=== PATIENT | male | born 1960 | race Caucasian/White ===

== ENCOUNTER 2017-01-20 08:00 | Outpatient (CLI) | payer MEDICAID | END 2017-01-20 08:01 | DX: I10 Essential (primary) hypertension (principal) ==

== ENCOUNTER 2017-01-25 09:44 | Outpatient (CLI) | payer MEDICAID | END 2017-01-25 09:45 | disposition critical access hospital (66) | DX: R07.9 Chest pain, unspecified (principal); R68.84 Jaw pain | CPT/HCPCS: A0425; A0427 ==

== ENCOUNTER 2017-01-25 10:04 | Emergency (ER) | payer MEDICAID ==
[2017-01-25] MEDS ORDERED: DEXAMETHASONE 10 MG/ML VIAL IVP STA (11:22)
[2017-01-25] MEDS ORDERED: IPRATROPIUM/ALBUTEROL 3 ML NEB INH STA (11:22)
[2017-01-25] MEDS ORDERED: SODIUM CHLORIDE 0.9% 1,000 ML IV ONE (11:31)
[2017-01-25] MEDS ORDERED: DEXAMETHASONE 10 MG/ML VIAL ONE (11:40)
[2017-01-25] MEDS ORDERED: IPRATROPIUM/ALBUTEROL 3 ML NEB INH ONE (11:40)
== END 2017-01-25 12:37 | disposition home or self-care (01) ==
DX: R07.89 Other chest pain (principal); R06.00 Dyspnea, unspecified; R05 Cough; E86.0 Dehydration; H66.003 Acute suppurative otitis media without spontaneous rupture of ear drum, bilateral; G40.909 Epilepsy, unspecified, not intractable, without status epilepticus; Z87.891 Personal history of nicotine dependence
CPT/HCPCS: 36415; 71020; 80053; 83690; 84484; 85025; 93005; 93010; 94640; 96361; 96374; 99283; 99285; J7620

== ENCOUNTER 2017-05-12 09:58 | Emergency (ER) | payer MEDICAID ==
[2017-05-12] MEDS ORDERED: SODIUM CHLORIDE 0.9% 1,000 ML IV ONE (10:24)
[2017-05-12] MEDS ORDERED: ACETAMINOPHEN 1,000 MG/100 ML 100 ML IV STA (10:24)
[2017-05-12] MEDS ORDERED: ACETAMINOPHEN 1,000 MG/100 ML 100 ML IV ONE (10:37)
[2017-05-12 10:43] LABS: BASOPHILS # (AUTO) 0.1 10^3/uL (0.0-0.1); BASOPHILS % (AUTO) 1.2 %; EOSINOPHILS # (AUTO) 0.1 10^3/uL (0.0-0.7); EOSINOPHILS % (AUTO) 1.5 %; HCT - HEMATOCRIT 45.1 % (42.0-52.0); HGB - HEMOGLOBIN 15.5 g/dL (14.0-18.0); LYMPHOCYTES # (AUTO) 2.2 10^3/uL (1.5-3.5); LYMPHOCYTES % (AUTO) 32.4 %; MEAN CORPUSCULAR HEMOGLOBIN 30.2 pg (27.0-31.0); MEAN CORPUSCULAR HGB CONC 34.3 g/dL (32.0-36.0); MEAN PLATELET VOLUME 6.6 fL (7.4-11.4); MONOCYTES # (AUTO) 0.6 10^3/uL (0.0-1.0); MONOCYTES % (AUTO) 9.4 %; NEUTROPHILS # (AUTO) 3.8 10^3/uL (1.5-6.6); NEUTROPHILS % (AUTO) 55.5 %; RED BLOOD COUNT 5.12 10^6/uL (4.70-6.10); RED CELL DISTRIBUTION WIDTH 13.4 % (12.0-15.0); UNCORRECTED WHITE BLOOD COUNT 6.8 x10^3/uL; WHITE BLOOD COUNT 6.8 x10^3/uL (4.8-10.8)
[2017-05-12 10:56] LABS: ALBUMIN/GLOBULIN RATIO 1.5 (1.0-2.2); BILIRUBIN,TOTAL 0.9 mg/dL (0.2-1.0); CALCIUM 8.8 mg/dL (8.5-10.3); CREATININE 0.9 mg/dL (0.6-1.2); POTASSIUM 4.1 mmol/L (3.5-5.0); TOTAL PROTEIN 7.6 g/dL (6.7-8.2)
[2017-05-12 11:38] LABS: BILIRUBIN,URINE NEGATIVE (NEGATIVE); PH,URINE 6.5 PH (5.0-7.5)
[2017-05-12 11:41] LABS: UA CHARGE (STRIP ONLY) YES; UR CULTURE IF IND NOT INDICATED
[2017-05-12] MEDS ORDERED: HYDROmorphone 1 MG/ML SYRINGE IVP STA (11:45)
[2017-05-12] MEDS ORDERED: ONDANSETRON 4 MG/2 ML VIAL IVP STA (11:45)
[2017-05-12] MEDS ORDERED: HYDROmorphone 1 MG/ML SYRINGE ONE (11:48)
[2017-05-12] MEDS ORDERED: ONDANSETRON 4 MG/2 ML VIAL ONE (11:48)
--- NOTE | 2017-05-12 12:48 | CT Report ---
EXAM: CT HEAD EXAM DATE: 05/12/2017 12:09 PM. CLINICAL HISTORY: Headache after seizure and probable fall. COMPARISON: 11/25/2007. TECHNIQUE: Multiaxial CT images were obtained from the foramen magnum to the vertex. IV contrast: Non e. Reformats: Coronal. In accordance with CT protocol optimization, one or more of the following dose reduction techniques w ere utilized for this exam: automated exposure control, adjustment of mA and/or KV based on patient s ize, or use of iterative reconstructive technique. FINDINGS: Prominent bilateral ethmoid sinus mucosal thickening. Less opacified frontal sinus. Clear mastoids. N o displaced skull fracture. Unremarkable CT appearance of the brain. No intracranial hemorrhage. No hydrocephalus or evidence for acute infarct. No mass effect, midline shift or abnormal subdural fluid collection. IMPRESSION: No CT evidence for acute intracranial abnormality. Persistent but improved paranasal sinus mucosal thickening. [facility] Referring Provider Line: [phone] SITE ID: [id number]
--- NOTE | 2017-05-12 12:52 | CT Report ---
EXAM: CT CERVICAL SPINE WITHOUT CONTRAST DATE: 05/12/2017 12:19 PM HISTORY: Neck pain after seizure, probable fall. COMPARISONS: None. TECHNIQUE: Thin-section axial images were acquired of the cervical spine without contrast. Post-proce ssing: Coronal and sagittal reformats. Other: None. In accordance with CT protocol optimization, one or more of the following dose reduction techniques w ere utilized for this exam: automated exposure control, adjustment of mA and/or KV based on patient s ize, or use of iterative reconstructive technique. FINDINGS: No acute fracture or dislocation. Minimal degenerative C5 on C6 retrolisthesis. No significant bony cervical stenosis. Minimal to mild multilevel chronic appearing degenerative disk space narrowing. Unremarkable facets. No focal prevertebral soft tissue swelling. At least mild if not moderate bilateral chronic appearing TMJ DJD without dislocation. IMPRESSION: Mild cervical spine degenerative changes. No significant bony stenosis. No acute fracture or dislocation. [facility] Referring Provider Line: [phone] SITE ID: [id number]
--- NOTE | 2017-05-12 15:35 | ED Physician Documentation ---
History of Present Illness - Stated complaint Stated Complaint: HEAD PX/SZ - Chief complaint Chief Complaint: General - History obtained from History obtained from: Patient, Family (Mother) - Additonal information Additional information: The patient is a 56-year-old male who lives with his mother and presents complaining of headache and general body aches. His headache is similar to previous headaches which he has had for months, but he states that they're coming more frequently now. He has a history of seizures, and thinks he may have had a seizure last night. In addition to headache he also complains of neck pain, which he states occurs sometimes after having a seizure. He has not been on seizure medication for several years, but states he was prescribed Abilify earlier this week, but he has not started taking the medication. He denies fever, abdominal pain, nausea or vomiting. His mother had called the emergency department advising she is concerned about his mental status, and asking if he can get a psychiatric evaluation. He admits to hearing voices recently. The voices are from various sources, and he denies that they are command voices, but he has not been able to shut off. He denies suicidal or homicidal ideation. Review of Systems Constitutional: reports: Myalgias. denies: Fever Eyes: denies: Decreased vision Ears: denies: Tinnitus/ringing Nose: denies: Congestion Throat: denies: Sore throat Cardiac: denies: Chest pain / pressure Respiratory: denies: Dyspnea, Cough GI: denies: Abdominal Pain, Nausea, Vomiting : denies: Dysuria Skin: denies: Rash Musculoskeletal: reports: Neck pain. denies: Back pain, Extremity pain Neurologic: reports: Headache. denies: Focal weakness, Numbness Psychiatric: reports: Hallucinations. denies: Suicidal, Homicidal PD PAST MEDICAL HISTORY - Past Medical History Cardiovascular: None Respiratory: Pneumonia Neuro: Seizure disorder Endocrine/Autoimmune: HyPERthyroidism Psych: Depression - Past Surgical History Past Surgical History: Yes General: Appendectomy - Present Medications Home Medications: Ambulatory Orders Medication Instructions Recorded Confirmed Aripiprazole [Abilify] 15 mg PO DAILY 05/12/17 05/12/17 - Allergies Allergies/Adverse Reactions: Allergies Allergy/AdvReac Type Severity Reaction Status Date / Time NSAIDS (Non-Steroidal Allergy Severe Respiratory Verified 05/12/17 10:05 Anti-Inflamma - Living Situation Living Situation: reports: With family Living Arrangement: reports: At home - Social History Does the pt smoke?: Yes Smoking Status: Current every day smoker Does the pt drink ETOH?: No Does the pt have substance abuse?: Yes Substance Use and Type: Marijuana - Immunizations Immunizations are current?: Yes - POLST Patient has POLST: No PD ED PE NORMAL - Vitals Vital signs reviewed: Yes (hypertensive) - General General: Alert and oriented X 3, Well developed/nourished, Other (Appears distressed, holding his hands to his head and grimacing.) - HEENT HEENT: Atraumatic, PERRL, EOMI, Ears normal, Pharynx benign, Other (Fundi with sharp disc margins, without papilledema.) - Neck Neck: Supple, no meningeal sign, No bony TTP, No adenopathy, No JVD, Other ( Tenderness to palpation in the paracervical musculature bilaterally. No tenderness to palpation along the spinous processes.) - Cardiac Cardiac: RRR, No murmur - Respiratory Respiratory: No respiratory distress, Clear bilaterally - Abdomen Abdomen: Soft, Non tender - Back Back: No CVA TTP, No spinal TTP - Derm Derm: No rash - Extremities Extremities: No tenderness to palpate, No edema, No calf tenderness / cord - Neuro Neuro: Alert and oriented X 3, No motor deficit, No sensory deficit PD ED PE EXPANDED - Psych Psych: Withdrawn, Auditory hallucinations. No: Suicidal, Homicidal, Visual hallucinations Results - Vitals Vitals: Vital Signs - 24 hr 05/12/17 05/12/17 12:26 15:51 Heart Rate 70 82 Respiratory 20 18 Rate Blood Pressure 174/91 H 159/85 H O2 Saturation 98 98 Oxygen O2 Source Room air - Labs Labs: Laboratory Tests 05/12/17 05/12/17 05/12/17 10:36 10:36 11:00 WBC 6.8 RBC 5.12 Hgb 15.5 Hct 45.1 MCV 88.0 MCH 30.2 MCHC 34.3 RDW 13.4 Plt Count 333 MPV 6.6 L Neut # 3.8 Lymph # 2.2 [place] # 0.6 Eos # 0.1 Baso # 0.1 Absolute Nucleated RBC 0.00 Nucleated RBCs 0.0 Sodium 135 Potassium 4.1 Chloride 103 Carbon Dioxide 24 Anion Gap 8.0 BUN 17 Creatinine 0.9 Estimated GFR (MDRD) 88 L Glucose 90 Calcium 8.8 Total Bilirubin 0.9 AST 19 ALT 16 Alkaline Phosphatase 45 Total Protein 7.6 Albumin 4.6 Globulin 3.0 Albumin/Globulin Ratio 1.5 Lipase 19 L Urine Color YELLOW Urine Clarity CLEAR Urine pH 6.5 Ur Specific [place] 1.010 Urine Protein NEGATIVE Urine Glucose (UA) NEGATIVE Urine Ketones TRACE Urine Occult Blood NEGATIVE Urine Nitrite NEGATIVE Urine Bilirubin NEGATIVE Urine Urobilinogen 0.2 (NORMAL) Ur Leukocyte Esterase NEGATIVE Ur Microscopic Review NOT INDICATED Urine Culture Comments NOT INDICATED Urine Opiates Screen Ur Oxycodone Screen Urine Methadone Screen Ur Propoxyphene Screen Ur Barbiturates Screen Ur Tricyclics Screen Ur Phencyclidine Scrn Ur Amphetamine Screen U Methamphetamines Scrn U Benzodiazepines Scrn Urine Cocaine Screen U Cannabinoids Screen 05/12/17 11:25 WBC RBC Hgb Hct MCV MCH MCHC RDW Plt Count MPV Neut # Lymph # [place] # Eos # Baso # Absolute Nucleated RBC Nucleated RBCs Sodium Potassium Chloride Carbon Dioxide Anion Gap BUN Creatinine Estimated GFR (MDRD) Glucose Calcium Total Bilirubin AST ALT Alkaline Phosphatase Total Protein Albumin Globulin Albumin/Globulin Ratio Lipase Urine Color Urine Clarity Urine pH Ur Specific [place] Urine Protein Urine Glucose (UA) Urine Ketones Urine Occult Blood Urine Nitrite Urine Bilirubin Urine Urobilinogen Ur Leukocyte Esterase Ur Microscopic Review Urine Culture Comments Urine Opiates Screen NEGATIVE Ur Oxycodone Screen NEGATIVE Urine Methadone Screen NEGATIVE Ur Propoxyphene Screen NEGATIVE Ur Barbiturates Screen NEGATIVE Ur Tricyclics Screen NEGATIVE Ur Phencyclidine Scrn NEGATIVE Ur Amphetamine Screen POSITIVE H U Methamphetamines Scrn POSITIVE H U Benzodiazepines Scrn NEGATIVE Urine Cocaine Screen NEGATIVE U Cannabinoids Screen NEGATIVE - Rads (name of study) Head CT Radiology: Prelim report reviewed, EMP read contemporaneously, See rad report ( No acute intracranial abnormality. Persistent, but improved, paranasal sinus mucosal thickening.) Cervical spine CT Radiology: Prelim report reviewed, EMP read contemporaneously, See rad report ( Mild cervical spine degenerative changes. No bony fracture or dislocation.) PD MEDICAL DECISION MAKING - ED course Complexity details: reviewed old records, reviewed results, re-evaluated patient , considered differential, d/w patient, d/w applications consultant ED course: The patient's presentation is significant for headache and auditory hallucinations. It is unclear whether or not he had a seizure, since there were no witnesses, and the patient only conjectures that he may have had one. Head CT and CT of the cervical spine are both negative, except for persistent paranasal sinus mucosal thickening seen on the head CT. CBC, chemistry panel, and urinalysis are unremarkable. Urine drug screen is positive for amphetamines and methamphetamine. Treatment in the emergency department included administration of normal saline 1 L IV, acetaminophen 1 g IV, and ondansetron 4 mg IV. He continued to complain of significant headache and neck pain. Hydromorphone 1 mg was administered IV, and his symptoms subsequently much improved. He was evaluated by the medical administrative who discussed various treatment options with him. He declined consideration of voluntary inpatient treatment, but did accept contact information for outpatient services. At the time of discharge he felt subjectively much improved and he appeared more comfortable. He states he will follow up for outpatient mental health assessment and counseling. I advised him to take the Abilify that had been previously prescribed for him. I discussed with him potentially worrisome signs or symptoms that should prompt reevaluation in the emergency department. Departure - Departure Disposition: 01 Home, Self Care Clinical Impression: Neck pain, Auditory hallucinations, Methamphetamine abuse Headache Qualifiers: Headache type: unspecified Headache chronicity pattern: acute headache Intractability: not intractable Qualified Code(s): R51 - Headache Condition: Stable Instructions: ED Cephalgia Unspecified, ED Neck Back Pain General, ED Psychosis Follow-Up: Timmy Monet PA-C [Primary Care Provider] - Comments: Drink plenty of fluids. Take the medication that was previously recently prescribed for you. Follow-up at [facility] next week as scheduled. Schedule follow-up appointment with your primary physician. Return to the emergency department if you develop increasing headache, persistent vomiting, increasing voices in your head, or otherwise worsening symptoms. Discharge Date/Time: 05/12/17 15:51
[2017-05-12 15:52] VITALS: BP 159/85
== END 2017-05-12 15:51 | disposition home or self-care (01) ==
LOC: ED 09:58
DX: M54.2 Cervicalgia (principal); R44.0 Auditory hallucinations; F15.10 Other stimulant abuse, uncomplicated; F17.200 Nicotine dependence, unspecified, uncomplicated
CPT/HCPCS: 36415; 70450; 72125; 80053; 80306; 81003; 83690; 85025; 96374; 96375; 99283; 99284; J0131; J1170; 81001; 87086

== ENCOUNTER 2019-05-21 08:00 | Outpatient (CLI) | payer MEDICAID ==
[2019-05-21 18:38] LABS: BASOPHILS # (AUTO) 0.1 10^3/uL (0.0-0.1); BASOPHILS % (AUTO) 0.9 %; EOSINOPHILS # (AUTO) 0.1 10^3/uL (0.0-0.7); EOSINOPHILS % (AUTO) 1.4 %; HGB - HEMOGLOBIN 15.5 g/dL (14.0-18.0); LYMPHOCYTES # (AUTO) 2.8 10^3/uL (1.5-3.5); LYMPHOCYTES % (AUTO) 30.2 %; MEAN CORPUSCULAR HEMOGLOBIN 30.8 pg (27.0-31.0); MEAN CORPUSCULAR HGB CONC 32.8 g/dL (32.0-36.0); MEAN CORPUSCULAR VOLUME 93.8 fL (80.0-94.0); MONOCYTES # (AUTO) 0.8 10^3/uL (0.0-1.0); MONOCYTES % (AUTO) 8.1 %; NEUTROPHILS # (AUTO) 5.4 10^3/uL (1.5-6.6); NEUTROPHILS % (AUTO) 58.8 %; PLT - PLATELET COUNT 404 10^3/uL (130-450); RED BLOOD COUNT 5.04 10^6/uL (4.70-6.10); RED CELL DISTRIBUTION WIDTH 14.1 % (12.0-15.0); WHITE BLOOD COUNT 9.3 x10^3/uL (4.8-10.8)
[2019-05-21 19:17] LABS: PSA FREE 0.15 ng/mL (0.16-2.81)
[2019-05-21 19:18] LABS: PSA TOTAL 1.658 ng/mL (0.000-2.000)
[2019-05-21 19:21] LABS: ALBUMIN 4.2 g/dL (3.2-5.5); ALBUMIN/GLOBULIN RATIO 1.2 (1.0-2.2); ALKALINE PHOSPHATASE 53 IU/L (42-121); ALT ALANINE AMINOTRANSFERASE 33 IU/L (10-60); AST ASPARTATE AMINOTRANSFERASE 23 IU/L (10-42); BILIRUBIN,TOTAL 0.6 mg/dL (0.2-1.0); BUN - BLOOD UREA NITROGEN 19 mg/dL (6-20); CALCIUM 9.3 mg/dL (8.5-10.3); CARBON DIOXIDE - CO2 25 mmol/L (21-32); CHLORIDE 103 mmol/L (101-111); CHOL/HDL RATIO 3.7 (<5.0); CHOLESTEROL 252 mg/dL; CREATININE 0.9 mg/dL (0.6-1.2); GFR - MDRD 87 (>89); GLUCOSE 83 mg/dL (70-100); HDL CHOLESTEROL 68 mg/dL; LDL CHOLESTEROL,CALCULATED 165 mg/dL; LDL/HDL RATIO 2.4 (<3.6); SODIUM 138 mmol/L (135-145); TOTAL PROTEIN 7.7 g/dL (6.7-8.2); VLDL CHOLESTEROL 19 mg/dL
== END 2019-05-21 23:59 | disposition home or self-care (01) ==
LOC: LAB.N 08:00
PROVIDERS: ATTEND Nurse Practitioner Gerontology
DX: R35.0 Frequency of micturition (principal); R53.83 Other fatigue; E03.9 Hypothyroidism, unspecified; F17.200 Nicotine dependence, unspecified, uncomplicated; E78.5 Hyperlipidemia, unspecified; I10 Essential (primary) hypertension
CPT/HCPCS: 36415; 80050; 80061; 83721; 84153; 84154

== ENCOUNTER 2019-06-21 10:30 | Outpatient (CLI) | payer MEDICAID ==
[2019-06-21 20:26] LABS: TRICHOMONAS VAGINALIS DNA NEGATIVE (NEGATIVE)
[2019-06-22 13:27] LABS: HIV AG/AB 4TH GEN NON-REACTIVE (NON-REACTIVE)
== END 2019-06-21 23:59 | disposition home or self-care (01) ==
LOC: LAB.N 10:30
PROVIDERS: ATTEND Nurse Practitioner Gerontology
DX: Z11.3 Encounter for screening for infections with a predominantly sexual mode of transmission (principal)
CPT/HCPCS: 36415; 81599; 86592; 87389; 87491; 87591; 87661

== ENCOUNTER 2019-08-19 09:50 | Outpatient (CLI) | payer MEDICAID | END 2019-08-19 09:51 | disposition critical access hospital (66) | LOC: EMS 09:50 | PROVIDERS: ATTEND Surgery | DX: R07.9 Chest pain, unspecified (principal) | CPT/HCPCS: A0425; A0429; A0999 ==

== ENCOUNTER 2019-08-19 10:10 | Emergency (ER) | payer MEDICAID ==
[2019-08-19 10:20] VITALS: BP 160/102
--- NOTE | 2019-08-19 10:47 | ED Physician Documentation ---
History of Present Illness - Stated complaint Stated Complaint: HALLUCINATIONS - Chief complaint Chief Complaint: MHE - History obtained from History obtained from: Patient - History of Present Illness Timing: Unknown - Treatment prior to arrival Treatment prior to arrival: none - Additonal information Additional information: 59 y/o M brought in by EMS who were sent to home for pt having delusions about his neighbors causing him pain. pt is calm, not combative or agitated and denies any delusions but when asked further states that his neighbors are causing him problems. He denies any SI or HI thoughts and admits that he has medication on him and needs to refills but does not always take his meds. He believes he is not schizophrenic. Review of Systems Unable to obtain: Uncooperative (patient does not wish to be evaluated and refuses to answer ROS questions) PD PAST MEDICAL HISTORY - Past Medical History Past Medical History: Yes Cardiovascular: None Respiratory: Pneumonia Endocrine/Autoimmune: HyPERthyroidism Psych: Depression - Past Surgical History Past Surgical History: Yes General: Appendectomy - Present Medications Home Medications: Ambulatory Orders Medication Instructions Recorded Confirmed Losartan Potassium 25 mg PO DAILY 08/19/19 08/19/19 risperiDONE [Risperidone Odt] 2 mg PO DAILY 08/19/19 08/19/19 - Allergies Allergies/Adverse Reactions: Allergies Allergy/AdvReac Type Severity Reaction Status Date / Time NSAIDS (Non-Steroidal Allergy Severe Respiratory Verified 08/19/19 10:18 Anti-Inflamma - Social History Does the pt smoke?: Yes Smoking Status: Current every day smoker Does the pt drink ETOH?: No Does the pt have substance abuse?: Yes - Immunizations Immunizations are current?: Yes - POLST Patient has POLST: No PD ED PE NORMAL - Vitals Vital signs reviewed: Yes - General General: Alert and oriented X 3, No acute distress, Well developed/nourished - HEENT HEENT: Atraumatic, Pharynx benign - Neck Neck: Supple, no meningeal sign - Cardiac Cardiac: RRR, No murmur, No gallop, No rub - Respiratory Respiratory: No respiratory distress, Clear bilaterally - Abdomen Abdomen: Soft, Non tender, Non distended - Male Male : Deferred - Rectal Rectal: Deferred - Derm Derm: Normal color, Warm and dry, No rash - Extremities Extremities: No deformity - Neuro Neuro: Alert and oriented X 3 Eye Opening: Spontaneous Motor: Obeys Commands Verbal: Oriented GCS Score: 15 - Psych Psych: Normal mood, Normal affect PD ED PE EXPANDED - Psych Psych: Delusions (pt does have a delusion that other people are causing him pain). No: Intoxicated / AOB, Depressed, Suicidal, Homicidal, Tearful, Withdrawn, Poor eye contact, Non verbal, Anxious, Agitated, Combative, Manic, Flight of ideas Results - Vitals Vitals: Vital Signs - 24 hr 08/19/19 10:15 Temperature 36.6 C Heart Rate 78 Respiratory 16 Rate Blood Pressure 160/102 H O2 Saturation 99 Oxygen O2 Source Room air PD MEDICAL DECISION MAKING - ED course Complexity details: considered differential, d/w patient ED course: 59 y/o M with likely hx of schizophrenia, poorly compliant with meds but does not appear to be a danger to himself or others. He does have a delusion about his neighbors causing him trouble but he has no thoughts of self harm or harm of others. His vitals are stable, his exam is otherwise normal. He is not intoxicated and is otherwise coherent and would like to return home with his sister who is picking him up. I think this is reasonable but strongly urged him to follow up with his primary doctor this week to discuss the importance of taking his medication and have a follow up plan. Departure - Departure Disposition: 01 Home, Self Care Clinical Impression: General medical examination, Psychiatric symptoms Condition: Fair Record reviewed to determine appropriate education?: Yes Follow-Up: your, doctor [Other] Comments: You were evaluated in the ED per your mother's request for thoughts of people causing you pain. You refused labs and ED evaluation. You were deemed to have no thoughts of self harm or harm to others and appear to be able to care for yourself thus you are competent to return home and should make an appointment with your doctor this week to further discuss your symptoms. Discharge Date/Time: 08/19/19 10:50
== END 2019-08-19 10:50 | disposition home or self-care (01) ==
LOC: EDSEX → EDUNIT# → ED 10:10
DX: F22 Delusional disorders (principal); Z91.14 Patient's other noncompliance with medication regimen; F17.200 Nicotine dependence, unspecified, uncomplicated
CPT/HCPCS: 80053; 80307; 80320; 80329; 83690; 84443; 84484; 85025; 99281; 99283

== ENCOUNTER 2021-06-16 09:11 | Outpatient (CLI) | payer MEDICAID ==
[2021-06-16 12:25] LABS: BASOPHILS # (AUTO) 0.1 10^3/uL (0.0-0.1); BASOPHILS % (AUTO) 0.6 %; EOSINOPHILS # (AUTO) 0.1 10^3/uL (0.0-0.7); EOSINOPHILS % (AUTO) 1.5 %; HGB - HEMOGLOBIN 15.6 g/dL (14.0-18.0); LYMPHOCYTES # (AUTO) 2.2 10^3/uL (1.5-3.5); LYMPHOCYTES % (AUTO) 25.7 %; MEAN CORPUSCULAR HEMOGLOBIN 29.4 pg (27.0-31.0); MEAN CORPUSCULAR HGB CONC 31.8 g/dL (32.0-36.0); MEAN CORPUSCULAR VOLUME 92.5 fL (80.0-94.0); MEAN PLATELET VOLUME 9.1 fL (7.4-11.4); MONOCYTES # (AUTO) 0.8 10^3/uL (0.0-1.0); MONOCYTES % (AUTO) 9.7 %; NEUTROPHILS # (AUTO) 5.3 10^3/uL (1.5-6.6); NEUTROPHILS % (AUTO) 62.1 %; PLT - PLATELET COUNT 446 10^3/uL (130-450); RED CELL DISTRIBUTION WIDTH 14.6 % (12.0-15.0); WHITE BLOOD COUNT 8.5 x10^3/uL (4.8-10.8)
[2021-06-16 12:56] LABS: THYROID STIMULATING HORMONE 2.84 uIU/mL (0.34-5.60)
[2021-06-16 13:05] LABS: ALBUMIN 4.4 g/dL (3.2-5.5); ALBUMIN/GLOBULIN RATIO 1.4 (1.0-2.2); ALKALINE PHOSPHATASE 56 IU/L (42-121); ALT ALANINE AMINOTRANSFERASE 22 IU/L (10-60); AST ASPARTATE AMINOTRANSFERASE 20 IU/L (10-42); BILIRUBIN,TOTAL 0.9 mg/dL (0.2-1.0); BUN - BLOOD UREA NITROGEN 19 mg/dL (6-20); CALCIUM 9.5 mg/dL (8.5-10.3); CARBON DIOXIDE - CO2 28 mmol/L (21-32); CHLORIDE 104 mmol/L (101-111); CHOL/HDL RATIO 4.8 (<5.0); CHOLESTEROL 240 mg/dL; GFR - MDRD 77 (>89); GLUCOSE 89 mg/dL (70-100); HDL CHOLESTEROL 50 mg/dL; LDL CHOLESTEROL,CALCULATED 170 mg/dL; LDL/HDL RATIO 3.4 (<3.6); POTASSIUM 4.3 mmol/L (3.5-5.0); SODIUM 141 mmol/L (135-145); TOTAL PROTEIN 7.6 g/dL (6.7-8.2); TRIGLYCERIDES 98 mg/dL; VLDL CHOLESTEROL 20 mg/dL
[2021-06-16 13:09] LABS: ESTIMATED AVERAGE GLUCOSE 111 mg/dL (70-100); HEMOGLOBIN A1c% 5.5 % (4.27-6.07)
== END 2021-06-16 09:12 | disposition home or self-care (01) ==
LOC: LAB.N 09:11
PROVIDERS: ATTEND Family Medicine
DX: I10 Essential (primary) hypertension (principal); E78.5 Hyperlipidemia, unspecified; F19.10 Other psychoactive substance abuse, uncomplicated; Z79.899 Other long term (current) drug therapy; Z12.5 Encounter for screening for malignant neoplasm of prostate; E03.9 Hypothyroidism, unspecified
CPT/HCPCS: 36415; 80050; 80061; 80306; 83036; 83721; 84153